=== PATIENT | female | born 1995 | race Caucasian/White ===

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

== ENCOUNTER 2018-03-28 16:34 | Emergency (ER) | payer BC, OTHER ==
--- NOTE | 2018-03-28 17:05 | ED ---
General Adult HPI - General Chief complaint: Psychiatric Symptoms Stated complaint: suicidal Time Seen by Provider: 03/28/18 16:49 Source: patient, RN notes reviewed Mode of arrival: EMS Limitations: no limitations - History of Present Illness Initial comments: Patient is a 22-year-old female presenting to the emergency room today with chief complaint of suicidal ideation. Patient does admit that she saw her family doctor today who advised come to the emergency room for psychiatric evaluation. Patient does admit that she's been feeling more depressed. States that she's been upset because things at home. Patient states thoughts of hanging herself. States that she did not go through with it she notes it would upset a lot of other people. Patient denies any homicidal thoughts or plans denies any visual or auditory hallucinations. Denies any other complaints. Patient denies any recent fever, chills, shortness of breath, chest pain, back pain, abdominal pain, nausea or vomiting, numbness or tingling, headaches or visual changes, or any other complaints. - Related Data Home Medications Medication Instructions Recorded Confirmed Dextroamphetamine/Amphetamine 30 mg PO DAILY@1430 09/13/16 03/28/18 [Adderall Xr] Ibuprofen [Motrin Ib] 200 - 400 mg PO Q6H PRN 03/28/18 03/28/18 Allergies Allergy/AdvReac Type Severity Reaction Status Date / Time No Known Allergies Allergy Verified 03/28/18 17:12 Review of Systems ROS Statement: Those systems with pertinent positive or pertinent negative responses have been documented in the HPI. ROS Other: All systems not noted in ROS Statement are negative. Past Medical History Past Medical History: No Reported History History of Any Multi-Drug Resistant Organisms: None Reported Past Surgical History: Orthopedic Surgery Past Psychological History: ADD/ADHD, Depression Smoking Status: Never smoker Past Alcohol Use History: None Reported Past Drug Use History: None Reported General Exam - General Exam Comments Initial Comments: General: The patient is awake and alert, in no distress, and does not appear acutely ill. Eye: extra-ocular movements are intact. No nystagmus. There is normal conjunctiva bilaterally. No signs of icterus. Ears, nose, mouth and throat: There are moist mucous membranes and no oral lesions. Neck: The neck is supple Cardiovascular: There is a regular rate and rhythm. No murmur, rub or gallop is appreciated. Respiratory: Lungs are clear to auscultation, respirations are non-labored, breath sounds are equal. No wheezes, stridor, rales, or rhonchi. Musculoskeletal: Normal ROM, no tenderness. Strength 5/5. Sensation intact. Neurological: A&O x 3. CN II-XII intact, There are no obvious motor or sensory deficits. Coordination appears grossly intact. Speech is normal. Skin: Skin is warm and dry and no rashes or lesions are noted. Psychiatric: Cooperative, appropriate mood & affect, normal judgment. Limitations: no limitations Course Vital Signs 03/28/18 03/28/18 03/28/18 16:53 20:11 23:06 Temperature 98 F 98 F 98 F Pulse Rate 115 H 99 90 Respiratory 18 Rate Blood Pressure 130/72 122/66 120/77 O2 Sat by Pulse 98 99 98 Oximetry Medical Decision Making - Medical Decision Making Patient's a urine emergency room by [facility] at the recommended admission. Patient will need to be transferred to psychiatric facility. - Lab Data Result diagrams: 03/28/18 18:37 03/28/18 18:37 Lab Results 03/28/18 03/28/18 03/28/18 Range/Units 18:37 18:37 18:37 WBC 9.0 (4.0-11.0) k/uL RBC 4.65 (3.80-5.40) m/uL Hgb 12.9 (11.4-16.0) gm/dL Hct 39.2 (34.0-46.0) % MCV 84.4 (80.0-100.0) fL MCH 27.8 (25.0-35.0) pg MCHC 33.0 (31.0-37.0) g/dL RDW 13.6 (11.5-15.5) % Plt Count 243 (150-450) k/uL Neutrophils % 71 % Lymphocytes % 20 % Monocytes % 6 % Eosinophils % 1 % Basophils % 0 % Neutrophils # 6.4 (1.3-7.7) k/uL Lymphocytes # 1.8 (1.0-4.8) k/uL Monocytes # 0.5 (0-1.0) k/uL Eosinophils # 0.1 (0-0.7) k/uL Basophils # 0.0 (0-0.2) k/uL Sodium (137-145) mmol/L Potassium (3.5-5.1) mmol/L Chloride (98-107) mmol/L Carbon Dioxide (22-30) mmol/L Anion Gap mmol/L BUN (7-17) mg/dL Creatinine (0.52-1.04) mg/dL Est GFR (CKD-EPI)AfAm (>60 ml/min/1.73 sqM) Est GFR (CKD-EPI)NonAf (>60 ml/min/1.73 sqM) Glucose (74-99) mg/dL Calcium (8.4-10.2) mg/dL Total Bilirubin (0.2-1.3) mg/dL AST (14-36) U/L ALT (9-52) U/L Alkaline Phosphatase (38-126) U/L Total Protein (6.3-8.2) g/dL Albumin (3.5-5.0) g/dL Urine Color Yellow Urine Appearance Clear (Clear) Urine pH 8.0 (5.0-8.0) Ur Specific Tow[place] 1.015 (1.001-1.035) Urine Protein Negative (Negative) Urine Glucose (UA) Negative (Negative) Urine Ketones Negative (Negative) Urine Blood Negative (Negative) Urine Nitrite Negative (Negative) Urine Bilirubin Negative (Negative) Urine Urobilinogen <2.0 (<2.0) mg/dL Ur Leukocyte Esterase Negative (Negative) Urine HCG, Qual Not Detected (Not Detectd) Urine Opiates Screen Not Detected (NotDetected) Ur Oxycodone Screen Not Detected (NotDetected) Urine Methadone Screen Not Detected (NotDetected) Ur Propoxyphene Screen Not Detected (NotDetected) Ur Barbiturates Screen Not Detected (NotDetected) U Tricyclic Antidepress Not Detected (NotDetected) Ur Phencyclidine Scrn Not Detected (NotDetected) Ur Amphetamines Screen Detected H (NotDetected) U Methamphetamines Scrn Not Detected (NotDetected) U Benzodiazepines Scrn Not Detected (NotDetected) Urine Cocaine Screen Not Detected (NotDetected) U Marijuana (THC) Screen Not Detected (NotDetected) 03/28/18 Range/Units 18:37 WBC (4.0-11.0) k/uL RBC (3.80-5.40) m/uL Hgb (11.4-16.0) gm/dL Hct (34.0-46.0) % MCV (80.0-100.0) fL MCH (25.0-35.0) pg MCHC (31.0-37.0) g/dL RDW (11.5-15.5) % Plt Count (150-450) k/uL Neutrophils % % Lymphocytes % % Monocytes % % Eosinophils % % Basophils % % Neutrophils # (1.3-7.7) k/uL Lymphocytes # (1.0-4.8) k/uL Monocytes # (0-1.0) k/uL Eosinophils # (0-0.7) k/uL Basophils # (0-0.2) k/uL Sodium 137 (137-145) mmol/L Potassium 4.4 (3.5-5.1) mmol/L Chloride 105 (98-107) mmol/L Carbon Dioxide 25 (22-30) mmol/L Anion Gap 7 mmol/L BUN 10 (7-17) mg/dL Creatinine 0.69 (0.52-1.04) mg/dL Est GFR (CKD-EPI)AfAm >90 (>60 ml/min/1.73 sqM) Est GFR (CKD-EPI)NonAf >90 (>60 ml/min/1.73 sqM) Glucose 101 H (74-99) mg/dL Calcium 9.3 (8.4-10.2) mg/dL Total Bilirubin 0.4 (0.2-1.3) mg/dL AST 18 (14-36) U/L ALT 29 (9-52) U/L Alkaline Phosphatase 104 (38-126) U/L Total Protein 7.1 (6.3-8.2) g/dL Albumin 4.2 (3.5-5.0) g/dL Urine Color Urine Appearance (Clear) Urine pH (5.0-8.0) Ur Specific [place] (1.001-1.035) Urine Protein (Negative) Urine Glucose (UA) (Negative) Urine Ketones (Negative) Urine Blood (Negative) Urine Nitrite (Negative) Urine Bilirubin (Negative) Urine Urobilinogen (<2.0) mg/dL Ur Leukocyte Esterase (Negative) Urine HCG, Qual (Not Detectd) Urine Opiates Screen (NotDetected) Ur Oxycodone Screen (NotDetected) Urine Methadone Screen (NotDetected) Ur Propoxyphene Screen (NotDetected) Ur Barbiturates Screen (NotDetected) U Tricyclic Antidepress (NotDetected) Ur Phencyclidine Scrn (NotDetected) Ur Amphetamines Screen (NotDetected) U Methamphetamines Scrn (NotDetected) U Benzodiazepines Scrn (NotDetected) Urine Cocaine Screen (NotDetected) U Marijuana (THC) Screen (NotDetected) Disposition Clinical Impression: Suicidal ideation Disposition: TRANSFER TO PSYCH HOSP/UNIT Condition: Stable Is patient prescribed a controlled substance at d/c from ED?: No Referrals: Altaf Lindo MD [Primary Care Provider] - 1-2 days Time of Disposition: 18:10
[2018-03-28 17:11] VITALS: RESP 18; TEMP 98
[2018-03-28 18:53] LABS: Appearance,Urine Clear (Clear); Bilirubin,Urine Negative (Negative); Blood,Urine Negative (Negative); Color,Urine Yellow; Glucose,Urine (UA) Negative (Negative); Ketones,Urine Negative (Negative); Leukocyte Esterase,Urine Negative (Negative); Nitrite,Urine Negative (Negative); Protein,Urine Negative (Negative); Specific Gravity,Urine 1.015 (1.001-1.035); Urobilinogen,Urine <2.0 mg/dL (<2.0)
[2018-03-28 18:54] LABS: Basophils % (A) 0 %; Eosinophils # (A) 0.1 k/uL (0-0.7); Eosinophils % (A) 1 %; HCT 39.2 % (34.0-46.0); HGB 12.9 gm/dL (11.4-16.0); Lymphocytes # (A) 1.8 k/uL (1.0-4.8); Lymphocytes % (A) 20 %; MCH 27.8 pg (25.0-35.0); MCV 84.4 fL (80.0-100.0); Mean Platelet Volume 6.3; Monocytes # (A) 0.5 k/uL (0-1.0); Monocytes % (A) 6 %; Neutrophils # (A) 6.4 k/uL (1.3-7.7); Neutrophils % (A) 71 %; Platelet Count 243 k/uL (150-450); RBC 4.65 m/uL (3.80-5.40); RDW 13.6 % (11.5-15.5)
[2018-03-28 19:04] LABS: Amphetamine Screen,Urine Detected (NotDetected); Barbiturate Screen,Urine Not Detected (NotDetected); Benzodiazepines Screen,Urine Not Detected (NotDetected); Cocaine Screen,Urine Not Detected (NotDetected); Methadone Screen, Urine Not Detected (NotDetected); Opiate Screen,Urine Not Detected (NotDetected); Oxycodone Screen, Urine Not Detected (NotDetected); Phencyclidine Screen,Urine Not Detected (NotDetected); Tricyclic Antidepressant,Urine Not Detected (NotDetected); Urn Cannabinoid Scrn Not Detected (NotDetected)
[2018-03-28 19:05] LABS: ALT 29 U/L (9-52); AST 18 U/L (14-36); Albumin 4.2 g/dL (3.5-5.0); Alkaline Phosphatase 104 U/L (38-126); Anion Gap 7 mmol/L; Blood Urea Nitrogen 10 mg/dL (7-17); Calcium 9.3 mg/dL (8.4-10.2); Carbon Dioxide 25 mmol/L (22-30); Chloride 105 mmol/L (98-107); Glucose 101 mg/dL (74-99); Potassium 4.4 mmol/L (3.5-5.1); Sodium 137 mmol/L (137-145); Total Bilirubin 0.4 mg/dL (0.2-1.3); Total Protein 7.1 g/dL (6.3-8.2)
[2018-03-28 23:07] VITALS: BP 120/77; PULSE 90
--- NOTE | 2018-03-29 08:22 | CDI ---
Documentation Clarification OP Dear KEAGAN Patterson/ Phil Andino MD Please do addendum to ED report for missing Clinical Impression. Thank you, Aliyah Brasher Creative Services Coordinator If you have any questions, please contact Retail Greeter at [phone] [facility]
== END 2018-03-28 23:07 ==
LOC: EC 16:34
DX: R45.851 Suicidal ideations (principal); F32.9 Major depressive disorder, single episode, unspecified; F90.9 Attention-deficit hyperactivity disorder, unspecified type; Z79.899 Other long term (current) drug therapy
CPT/HCPCS: 36415; 80053; 80306; 81003; 81025; 82075; 85025; 99285

== ENCOUNTER 2020-06-11 15:13 | Emergency (ER) | payer BC, OTHER ==
[2020-06-11 15:23] VITALS: BP 136/86; PULSE 99; RESP 20; TEMP 98
--- NOTE | 2020-06-11 16:21 | XR ---
EXAMINATION TYPE: XR knee complete RT DATE OF EXAM: 06/11/2020 COMPARISON: NONE HISTORY: 25-year-old female fall and pain TECHNIQUE: 3 views FINDINGS: Postsurgical changes of ACL graft reconstruction. There is degenerative spurring within the medial, l ateral, and patellofemoral compartments. Extensor mechanism appears intact. Trace knee joint effusion . No acute fracture, subluxation, dislocation seen. IMPRESSION: Trace knee joint effusion is nonspecific. Post surgical change of ACL graft reconstruction. Mild tric ompartmental osteoarthrosis. No acute fracture seen.
--- NOTE | 2020-06-11 16:58 | ED ---
General Adult HPI - General Chief complaint: Fall Stated complaint: R Knee Injury Time Seen by Provider: 06/11/20 15:39 Source: patient, RN notes reviewed, old records reviewed Mode of arrival: ambulatory Limitations: no limitations - History of Present Illness Initial comments: 25-year-old female patient presents to for evaluation of right knee injury. Patient reports that she has history of multiple surgeries on her right knee secondary to a ACL tear number of years ago. Patient also had a lateral meniscectomy definitive having a repeat meniscectomy as well as a scope none of these are within the last year. She reports that today she was mopping when she slipped on the wet floor landing on her right flexed knee. Denies any other injury or head trauma. Playing of right knee pain. States that she is having difficulty ambulating. Denies any other complaints. Systemic: Pt denies fatigue, fever/chills, rash. Pt denies weakness, night sweats, weight loss. Neuro: Pt denies headache, visual disturbances, syncope or pre-syncope. HEENT: Pt denies ocular discharge or irritation, otalgia, rhinorrhea, pharyngitis or notable lymphadenopathy. Cardiopulmonary: Pt denies chest pain, SOB, heart palpitations, dyspnea on exertion. Abdominal/GI: Pt denies abdominal pain, n/v/d. : Pt denies dysuria, burning w/ urination, frequency/urgency. Denies new onset urinary or bowel incontinence. Neuro: Pt denies new onset weakness, paresthesias. - Related Data Home Medications Medication Instructions Recorded Confirmed Dextroamphetamine/Amphetamine 30 mg PO DAILY 09/13/16 06/11/20 [Adderall Xr] ARIPiprazole [Abilify] 15 mg PO HS 06/11/20 06/11/20 Norgestimate-Ethinyl Estradiol 1 tab PO DAILY 06/11/20 06/11/20 [Tri-Estarylla Tablet] traZODone HCL [Desyrel] 100 mg PO HS 06/11/20 06/11/20 Allergies Allergy/AdvReac Type Severity Reaction Status Date / Time No Known Allergies Allergy Verified 06/11/20 16:30 Review of Systems ROS Statement: Those systems with pertinent positive or pertinent negative responses have been documented in the HPI. ROS Other: All systems not noted in ROS Statement are negative. Past Medical History Past Medical History: No Reported History History of Any Multi-Drug Resistant Organisms: None Reported Past Surgical History: Orthopedic Surgery Past Psychological History: ADD/ADHD, Depression Smoking Status: Vaper Past Alcohol Use History: None Reported Past Drug Use History: None Reported General Exam - General Exam Comments Initial Comments: Constitutional: NAD, AOX3, Pt has pleasant affect. HEENT: NC/AT, trachea midline, neck supple, no lymphadenopathy.External ears appear normal, without discharge. Mucous membranes moist. Eyes PERRLA, EOM intact. There is no scleral icterus. No pallor noted. Cardiopulmonary: RRR, no murmurs, rubs or gallops, no JVD noted. Lungs CTAB in anterior and posterior mendoza. No peripheral edema. Abdominal exam: Abdomen soft and non-distended. Neuro: CN II-XII grossly intact. No nuchal rigidity. No raccon eyes MSK: Mild amount of tenderness to right anterior knee. No skin changes. Dorsalis pedis and posterior tibialis pulse +2 equally. Sensation intact. No other areas of tenderness on extremities. Limitations: no limitations Course Vital Signs 06/11/20 15:18 Temperature 98.0 F Pulse Rate 99 Respiratory 20 Rate Blood Pressure 136/86 Medical Decision Making - Medical Decision Making 25-year-old female patient was seen for evaluation right knee injury. Patient vital signs stable, afebrile. Physical exam did not display some tenderness the right anterior knee. Plain film did not display any fracture. Trace effusion. Patient placed in knee immobilizer. Will use crutches A right lower extremity and will follow-up with previously established orthopedic surgeon. Case discussed with Dr. Mendoza. Disposition Clinical Impression: Knee sprain Disposition: HOME SELF-CARE Condition: Stable Instructions (If sedation given, give patient instructions): Knee Sprain (ED) Additional Instructions: follow up with orthopedic surgeon who you are previously established with tomorrow. Continue to wear knee immobilizer. Use crutches do not bear weight on the right lower extremity. Return to ER with any worsening symptoms. Follow up with PCP in 1-2 days. Is patient prescribed a controlled substance at d/c from ED?: No Referrals: Altaf Lindo MD [Primary Care Provider] - 1-2 days
== END 2020-06-11 17:01 | disposition home or self-care (01) ==
LOC: EC 15:13
DX: S83.91XA Sprain of unspecified site of right knee, initial encounter (principal); F17.290 Nicotine dependence, other tobacco product, uncomplicated; F32.9 Major depressive disorder, single episode, unspecified; F90.9 Attention-deficit hyperactivity disorder, unspecified type; Z79.899 Other long term (current) drug therapy; Z98.890 Other specified postprocedural states; Y93.E5 Activity, floor mopping and cleaning; Y92.009 Unspecified place in unspecified non-institutional (private) residence as the place of occurrence of the external cause
CPT/HCPCS: 73562; 99284; L1830

== ENCOUNTER 2020-12-12 14:33 | Emergency (ER) | payer BC, OTHER ==
[2020-12-12] MEDS ORDERED: SODIUM CHLORIDE 0.9% 1,000 ML IV STA (15:40)
[2020-12-12] MEDS ORDERED: KETOROLAC 15 MG/ML 1 ML VIAL IVP STA (15:40)
[2020-12-12] MEDS ORDERED: MAG HYDROX/AL HYDROX/SIMETH 30 ML, HYOSCYAMINE ELIXIR 10 ML, LIDOCAINE VISCOUS 2% 10 ML PO STA ×3 (15:42)
[2020-12-12 15:58] LABS: Basophils % (A) 0 %; Eosinophils % (A) 1 %; HCT 38.3 % (34.0-46.0); Lymphocytes # (A) 1.2 k/uL (1.0-4.8); Lymphocytes % (A) 25 %; MCH 27.7 pg (25.0-35.0); MCV 81.5 fL (80.0-100.0); Mean Platelet Volume 6.7; Monocytes # (A) 0.5 k/uL (0-1.0); Monocytes % (A) 10 %; Neutrophils # (A) 2.9 k/uL (1.3-7.7); Neutrophils % (A) 60 %; Platelet Count 210 k/uL (150-450); RDW 13.1 % (11.5-15.5); WBC 4.7 k/uL (3.8-10.6)
[2020-12-12 16:06] VITALS: RESP 18
[2020-12-12 16:06] LABS: ALT 18 U/L (4-34); AST 22 U/L (14-36); African American GFR (CKD) >90 (>60 ml/min/1.73 sqM); Albumin 4.2 g/dL (3.5-5.0); Alkaline Phosphatase 117 U/L (38-126); Anion Gap 8 mmol/L; Blood Urea Nitrogen 14 mg/dL (7-17); Calcium 9.2 mg/dL (8.4-10.2); Carbon Dioxide 25 mmol/L (22-30); Chloride 105 mmol/L (98-107); Glucose 112 mg/dL (74-99); Lipase 64 U/L (23-300); Non-African American GFR(CKD) >90 (>60 ml/min/1.73 sqM); Potassium 4.2 mmol/L (3.5-5.1); Sodium 138 mmol/L (137-145); Total Bilirubin 0.5 mg/dL (0.2-1.3); Total Protein 7.5 g/dL (6.3-8.2)
[2020-12-12 16:11] LABS: Appearance,Urine Clear (Clear); Bilirubin,Urine Negative (Negative); Blood,Urine Large (Negative); Color,Urine Yellow; Glucose,Urine (UA) Negative (Negative); Ketones,Urine Negative (Negative); Leukocyte Esterase,Urine Negative (Negative); Mucus,Urine Rare /hpf; Nitrite,Urine Negative (Negative); PH, Urine 5.5 (5.0-8.0); Protein,Urine Trace (Negative); RBC,Urine 4 /hpf (0-5); Specific Gravity,Urine 1.037 (1.001-1.035); Squamous Epithelial Cell,Urine 1 /hpf (0-4); Urobilinogen,Urine <2.0 mg/dL (<2.0); WBC,Urine 1 /hpf (0-5)
--- NOTE | 2020-12-12 16:31 | XR ---
EXAMINATION TYPE: XR chest 2V DATE OF EXAM: 12/12/2020 COMPARISON: NONE HISTORY: Chest pain TECHNIQUE: 2 views FINDINGS: Heart and mediastinum are normal. Lungs are clear. Diaphragm is normal. Bony thorax appears normal. IMPRESSION: Normal chest.
[2020-12-12] MEDS ORDERED: HYDROmorphone 1 MG/ML 1 ML SYRINGE IVP STA (17:07)
[2020-12-12] MEDS ORDERED: ONDANSETRON 4 MG/2 ML VIAL IVP STA (17:23)
--- NOTE | 2020-12-12 17:23 | ED ---
General Adult HPI - General Chief complaint: Chest Pain Stated complaint: Chest Pain Time Seen by Provider: 12/12/20 15:27 Source: patient Mode of arrival: ambulatory Limitations: no limitations - History of Present Illness Initial comments: 25-year-old female with no past medical history presents emergency Department with reported epigastric abdominal pain. Patient states that her symptoms started last night. She describes it as a burning sensation in the epigastric region. States that the symptoms are provoked upon eating. Denies history of similar in the past. Denies cough, fevers or chills. No shortness of breath. Admits to nausea without vomiting. Denies diarrhea, constipation, melenic stools or hematochezia. No dysuria, hematuria or difficulty voiding. No previous history of abdominal surgeries. No concern for . No other alleviating, precipitating or modifying factors - Related Data Home Medications Medication Instructions Recorded Confirmed Dextroamphetamine/Amphetamine 30 mg PO DAILY 09/13/16 12/12/20 [Adderall Xr] Norgestimate-Ethinyl Estradiol 1 tab PO DAILY 06/11/20 12/12/20 [Tri-Estarylla Tablet] Diclofenac Sodium [Voltaren] 75 mg PO BID PRN 12/12/20 12/12/20 Ergocalciferol (Vitamin D2) 1,250 mcg PO VELEZ 12/12/20 12/12/20 [Drisdol (50,000 Iu)] Previous Rx's Medication Instructions Recorded HYDROcodone/APAP 10-325MG [Herrin 1 tab PO Q6H PRN #12 tab 12/12/20 10-325] Ondansetron Odt [Zofran Odt] 4 mg PO Q8HR PRN #20 tab 12/12/20 Allergies Allergy/AdvReac Type Severity Reaction Status Date / Time No Known Allergies Allergy Verified 12/12/20 16:07 Review of Systems ROS Statement: Those systems with pertinent positive or pertinent negative responses have been documented in the HPI. ROS Other: All systems not noted in ROS Statement are negative. Past Medical History Past Medical History: No Reported History History of Any Multi-Drug Resistant Organisms: None Reported Past Surgical History: Orthopedic Surgery Past Psychological History: ADD/ADHD, Depression Smoking Status: Vaper Past Alcohol Use History: None Reported Past Drug Use History: None Reported General Exam Limitations: no limitations Course Vital Signs 12/12/20 12/12/20 14:39 16:06 Temperature 98.8 F Pulse Rate 95 83 Respiratory 17 18 Rate Blood Pressure 148/100 120/80 O2 Sat by Pulse 100 100 Oximetry EKG Findings - EKG Comments: EKG Findings:: EKG demonstrates normal since rhythm with a ventricular rate of 100. MI interval 150. QRS 88. QTC of 461. No acute ST segment elevations or depressions Medical Decision Making - Medical Decision Making Upon arrival patient was placed into room 8. A thorough history and physical exam is performed. IV is established. Patient was given a GI cocktail and 15 mg of Toradol. 1 L bolus of normal saline given. Laboratory studies were conducted and reviewed. Urinalysis does demonstrate large blood. Patient reports being on her menstrual cycle. Ultrasound is performed which demonstrates a stone in the gallbladder neck. Chest x-ray demonstrates no acute process. Patient continues to have abdominal pain upon reevaluation. She was given 1 mg of Dilaudid and 4 mg of Zofran. Patient is resting comfortably upon repeat evaluation. I did discuss the results with the patient. At this time she does feel comfortable discharged home. Will be given prescriptions for Herrin and Zofran. Instructed on proper use of the medication. She is to eat a bland diet. Call and Monday to make an appointment with the surgeon. Return to the emergency room for any new or worsening symptoms. Patient agreed to this was discharged home stable condition - Lab Data Result diagrams: 12/12/20 15:50 12/12/20 15:50 Lab Results 12/12/20 12/12/20 12/12/20 Range/Units 15:50 15:50 15:50 WBC 4.7 (3.8-10.6) k/uL RBC 4.70 (3.80-5.40) m/uL Hgb 13.0 (11.4-16.0) gm/dL Hct 38.3 (34.0-46.0) % MCV 81.5 (80.0-100.0) fL MCH 27.7 (25.0-35.0) pg MCHC 34.0 (31.0-37.0) g/dL RDW 13.1 (11.5-15.5) % Plt Count 210 (150-450) k/uL MPV 6.7 Neutrophils % 60 % Lymphocytes % 25 % Monocytes % 10 % Eosinophils % 1 % Basophils % 0 % Neutrophils # 2.9 (1.3-7.7) k/uL Lymphocytes # 1.2 (1.0-4.8) k/uL Monocytes # 0.5 (0-1.0) k/uL Eosinophils # 0.0 (0-0.7) k/uL Basophils # 0.0 (0-0.2) k/uL Sodium 138 (137-145) mmol/L Potassium 4.2 (3.5-5.1) mmol/L Chloride 105 (98-107) mmol/L Carbon Dioxide 25 (22-30) mmol/L Anion Gap 8 mmol/L BUN 14 (7-17) mg/dL Creatinine 0.70 (0.52-1.04) mg/dL Est GFR (CKD-EPI)AfAm >90 (>60 ml/min/1.73 sqM) Est GFR (CKD-EPI)NonAf >90 (>60 ml/min/1.73 sqM) Glucose 112 H (74-99) mg/dL Calcium 9.2 (8.4-10.2) mg/dL Total Bilirubin 0.5 (0.2-1.3) mg/dL AST 22 (14-36) U/L ALT 18 (4-34) U/L Alkaline Phosphatase 117 (38-126) U/L Troponin I <0.012 (0.000-0.034) ng/mL Total Protein 7.5 (6.3-8.2) g/dL Albumin 4.2 (3.5-5.0) g/dL Lipase 64 (23-300) U/L Urine Color Urine Appearance (Clear) Urine pH (5.0-8.0) Ur Specific [place] (1.001-1.035) Urine Protein (Negative) Urine Glucose (UA) (Negative) Urine Ketones (Negative) Urine Blood (Negative) Urine Nitrite (Negative) Urine Bilirubin (Negative) Urine Urobilinogen (<2.0) mg/dL Ur Leukocyte Esterase (Negative) Urine RBC (0-5) /hpf Urine WBC (0-5) /hpf Ur Squamous Epith Cells (0-4) /hpf Urine Mucus (None) /hpf Urine HCG, Qual (Not Detectd) 12/12/20 12/12/20 Range/Units 16:04 16:04 WBC (3.8-10.6) k/uL RBC (3.80-5.40) m/uL Hgb (11.4-16.0) gm/dL Hct (34.0-46.0) % MCV (80.0-100.0) fL MCH (25.0-35.0) pg MCHC (31.0-37.0) g/dL RDW (11.5-15.5) % Plt Count (150-450) k/uL MPV Neutrophils % % Lymphocytes % % Monocytes % % Eosinophils % % Basophils % % Neutrophils # (1.3-7.7) k/uL Lymphocytes # (1.0-4.8) k/uL Monocytes # (0-1.0) k/uL Eosinophils # (0-0.7) k/uL Basophils # (0-0.2) k/uL Sodium (137-145) mmol/L Potassium (3.5-5.1) mmol/L Chloride (98-107) mmol/L Carbon Dioxide (22-30) mmol/L Anion Gap mmol/L BUN (7-17) mg/dL Creatinine (0.52-1.04) mg/dL Est GFR (CKD-EPI)AfAm (>60 ml/min/1.73 sqM) Est GFR (CKD-EPI)NonAf (>60 ml/min/1.73 sqM) Glucose (74-99) mg/dL Calcium (8.4-10.2) mg/dL Total Bilirubin (0.2-1.3) mg/dL AST (14-36) U/L ALT (4-34) U/L Alkaline Phosphatase (38-126) U/L Troponin I (0.000-0.034) ng/mL Total Protein (6.3-8.2) g/dL Albumin (3.5-5.0) g/dL Lipase (23-300) U/L Urine Color Yellow Urine Appearance Clear (Clear) Urine pH 5.5 (5.0-8.0) Ur Specific [place] 1.037 H (1.001-1.035) Urine Protein Trace H (Negative) Urine Glucose (UA) Negative (Negative) Urine Ketones Negative (Negative) Urine Blood Large H (Negative) Urine Nitrite Negative (Negative) Urine Bilirubin Negative (Negative) Urine Urobilinogen <2.0 (<2.0) mg/dL Ur Leukocyte Esterase Negative (Negative) Urine RBC 4 (0-5) /hpf Urine WBC 1 (0-5) /hpf Ur Squamous Epith Cells 1 (0-4) /hpf Urine Mucus Rare H (None) /hpf Urine HCG, Qual Not Detected (Not Detectd) Disposition Clinical Impression: Epigastric pain, Cholelithiasis Disposition: HOME SELF-CARE Condition: Stable Instructions (If sedation given, give patient instructions): Gallstones (ED) Additional Instructions: Please make an appointment with the surgeon. Eat a bland diet. Take the medications as directed. Return to the emergency room for any new or worsening symptoms Prescriptions: HYDROcodone/APAP 10-325MG [Herrin 10-325] 1 tab PO Q6H PRN #12 tab PRN Reason: pain Ondansetron Odt [Zofran Odt] 4 mg PO Q8HR PRN #20 tab PRN Reason: Nausea Is patient prescribed a controlled substance at d/c from ED?: Yes When asked, does pt state using other controlled substances?: No If prescribed controlled substance>3 days was MAPS reviewed?: Prescribed <3 Days If opioid is for acute pain is fill amount 7 days or less?: Yes If Rx opioid, was Start Talking consent form obtained?: Yes Referrals: Altaf Lindo MD [Primary Care Provider] - 1-2 days Anum Monsivais MD [STAFF PHYSICIAN] - 1-2 days Time of Disposition: 17:54
--- NOTE | 2020-12-12 17:27 | US ---
EXAMINATION TYPE: US gallbladder DATE OF EXAM: 12/12/2020 COMPARISON: NONE CLINICAL HISTORY: abd pain, nausea. EC patient with Severe epigastric pain today. EXAM MEASUREMENTS: Liver Length: 17.1 cm Gallbladder Wall: 0.2 cm CBD: 0.4 cm Right Kidney: 10.6 x 6.4 x 4.8 cm Pancreas: hyperechoic Liver: decreased penetration due to overlying bowel gas Gallbladder: hyperechoic, shadowing stone = 0.7 x 0.8 x 0.5cm seen in neck of gallbladder in supine and LPO/LLD positions Evidence for sonographic Pugh's sign: yes CBD: wnl Right Kidney: No hydronephrosis or masses seen IMPRESSION: Gallstone in the gallbladder neck. No dilated ducts. No focal liver defect.
[2020-12-12 18:10] VITALS: BP 116/64; PULSE 91; TEMP 98.4
== END 2020-12-12 18:23 | disposition home or self-care (01) ==
LOC: EC 14:33
DX: K80.20 Calculus of gallbladder without cholecystitis without obstruction (principal); F32.9 Major depressive disorder, single episode, unspecified; F17.290 Nicotine dependence, other tobacco product, uncomplicated
CPT/HCPCS: 36415; 93005; 80053; 83690; 84484; 85025; 81001; 81025; 71046; 76705; 99285; 96374; 96375; 96361; J2405; J1885

== ENCOUNTER 2022-07-08 13:03 | Emergency (ER) | payer BC, OTHER ==
[2022-07-08 13:52] VITALS: BP 149/70; PULSE 98; RESP 20; TEMP 98.4
[2022-07-08 14:27] LABS: Appearance,Urine Clear (Clear); Bacteria,Urine Rare /hpf; Bilirubin,Urine Negative (Negative); Blood,Urine Negative (Negative); Color,Urine Light Yellow; Glucose,Urine (UA) Negative (Negative); Ketones,Urine Negative (Negative); Leukocyte Esterase,Urine Large (Negative); Mucus,Urine Rare /hpf; Nitrite,Urine Negative (Negative); PH, Urine 7.5 (5.0-8.0); Protein,Urine Negative (Negative); RBC,Urine 4 /hpf (0-5); Specific Gravity,Urine 1.013 (1.001-1.035); Squamous Epithelial Cell,Urine 2 /hpf (0-4); Urobilinogen,Urine <2.0 mg/dL (<2.0); WBC,Urine 25 /hpf (0-5)
== END 2022-07-08 14:47 | disposition left against medical advice (07) ==
LOC: EC 13:03
DX: N39.0 Urinary tract infection, site not specified (principal); Z53.21 Procedure and treatment not carried out due to patient leaving prior to being seen by health care provider
CPT/HCPCS: 81001; 87086; 99499